=== PATIENT | female | born 1955 | race Caucasian/White ===

== ENCOUNTER → 2016-08-04 | Outpatient (CLI) | payer MEDICARE, BC ==
--- NOTE | 2016-08-04 13:18 | XR ---
EXAMINATION TYPE: XR chest 2V DATE OF EXAM: 08/04/2016 12:22 PM COMPARISON: None TECHNIQUE: PA and lateral views submitted. HISTORY: Difficulty breathing FINDINGS: The lungs are clear and there is no pneumothorax, pleural effusion, or focal pneumonia. IMPRESSION: 1. No acute process.
== END | disposition home or self-care (01) ==
LOC: RADXRMAIN 12:07
PROVIDERS: ATTEND Family Medicine
DX: R06.00 Dyspnea, unspecified (principal)
CPT/HCPCS: 71020

== ENCOUNTER → 2016-08-24 | Outpatient (CLI) | payer MEDICARE, BC ==
--- NOTE | 2016-08-25 06:53 | CT ---
EXAMINATION TYPE: CT mastoid wo con DATE OF EXAM: 08/24/2016 COMPARISON: NONE HISTORY: Chronic infections involving left mastoid. CT DLP: 150 mGycm CONTRAST: High-resolution noncontrast CT of the temporal bones was performed without contrast. Images are revie wed in the axial and coronal plane. External auditory canals are symmetric. Tympanic membranes are not thickened. Ossicular chains are symmetric and free of a destructive process or erosive change. No evidence for soft tissue mass with in the epitympanum or attic. No evidence for cholesteatoma or cholesterol granuloma. Mastoid air cells demonstrate a tiny amount of fluid within the left-sided mastoid air cells. Mastoid air cells are otherwise well aerated. No bony destructive process seen. No obvious soft tissue mass at the cerebellopontine cistern angles. Internal auditory canals are sym metric. There is a moderate pansinusitis. IMPRESSION: 1. Minimal fluid within the left-sided mastoid air cells. 2. Pansinusitis.
== END | disposition home or self-care (01) ==
LOC: RADCTMAIN 19:26
PROVIDERS: ATTEND Family Medicine
DX: H70.90 Unspecified mastoiditis, unspecified ear (principal)
CPT/HCPCS: 70486

== ENCOUNTER → 2016-11-04 | Outpatient (CLI) | payer MEDICARE, BC | END | disposition home or self-care (01) | LOC: NEUROMAIN 07:11 | PROVIDERS: ATTEND Otolaryngology | DX: Z53.9 Procedure and treatment not carried out, unspecified reason (principal) ==

== ENCOUNTER → 2017-04-05 | Outpatient (CLI) | payer MEDICARE ==
--- NOTE | 2017-04-05 10:20 | MM ---
Reason for exam: additional evaluation requested from prior study. Last mammogram was performed 1 year ago. History: Patient is postmenopausal. Benign excisional biopsy of the right breast, 1999. Physical Findings: Nurse did not find any significant physical abnormalities on exam. MG 3D Diag Mammo W/Cad [facility] Bilateral CC and MLO view(s) were taken. Prior study comparison: March 23, 2016, bilateral MG 3d screening mammo w/cad. January 19, 2015, bilateral MG screening mammo w CAD. There are scattered fibroglandular densities. Finding: There are typically benign round, regional calcifications in the right breast. There is a chronic nodularity in the left breast. There is no discrete abnormality. These results were verbally communicated with the patient and result sheet given to the patient on 04/05/17. ASSESSMENT: Benign, BI-RAD 2 RECOMMENDATION: Routine screening mammogram of both breasts in 1 year.
== END | disposition home or self-care (01) ==
LOC: RADMAMWWP 08:51
PROVIDERS: ATTEND Family Medicine
DX: R92.8 Other abnormal and inconclusive findings on diagnostic imaging of breast (principal)
CPT/HCPCS: 77066; G0279

== ENCOUNTER → 2017-06-06 | Outpatient (CLI) | payer MEDICARE ==
--- NOTE | 2017-06-06 10:26 | XR ---
EXAMINATION TYPE: XR chest 2V DATE OF EXAM: 06/06/2017 COMPARISON: 08/04/2016 TECHNIQUE: PA and lateral views submitted. HISTORY: Cough FINDINGS: The lungs are clear and there is no pneumothorax, pleural effusion, or focal pneumonia. Biapical pl eural thickening. Hypertrophic and degenerative change of the spine. IMPRESSION: 1. No acute process.
== END | disposition home or self-care (01) ==
LOC: RADXRMAIN 09:43
PROVIDERS: ATTEND Family Medicine
DX: J98.01 Acute bronchospasm (principal)
CPT/HCPCS: 71046

== ENCOUNTER → 2018-05-22 | Outpatient (CLI) | payer MEDICARE ==
--- NOTE | 2018-05-23 11:10 | MM ---
Reason for exam: screening (asymptomatic). Last mammogram was performed 1 year and 2 months ago. History: Patient is postmenopausal. Benign excisional biopsy of the right breast, 1999. Physical Findings: A clinical breast exam by your physician is recommended on an annual basis and results should be correlated with mammographic findings. MG 3D Screening Mammo W/Cad Bilateral CC and MLO view(s) were taken. Prior study comparison: April 05, 2017, bilateral MG 3d diag mammo w/cad [facility]. March 23, 2016, bilateral MG 3d screening mammo w/cad. The breast tissue is almost entirely fat. Asymmetric breast tissue in right breast upper outer quadrant 7cm from nipple and at 6 o'clock 5cm from nipple. This finding is changed when compared with previous exams. ASSESSMENT: Incomplete: need additional imaging evaluation, BI-RAD 0 RECOMMENDATION: Ultrasound of the right breast. [facility] will attempt to contact patient to return for ultrasound.
== END | disposition home or self-care (01) ==
LOC: RADMAMWWP 11:51
PROVIDERS: ATTEND Family Medicine
DX: Z12.31 Encounter for screening mammogram for malignant neoplasm of breast (principal)
CPT/HCPCS: 77063; 77067

== ENCOUNTER → 2018-06-06 | Outpatient (CLI) | payer MEDICARE ==
--- NOTE | 2018-06-06 14:54 | USB ---
Reason for exam: additional evaluation requested from abnormal screening. History: Patient is postmenopausal. Benign excisional biopsy of the right breast, 1999. Physical Findings: Nurse Summary: prominent area of tissue right breast 12 o'clock, all soft, movable (nurse ts). US Breast Workup Limited RT Right limited breast ultrasound including focal area of concern, retroareolar and axilla demonstrates a 0.2 x 0.1 x 0.2cm lesion too small to characterize at 2 o'clock, a 0.7 x 0.8 x 0.2cm solid, hypoechoic lesion at 6 o'clock possible cyst cluster corresponds to the mammographic finding for which a biopsy is recommended and a 0.5 x 0.6 x 0.2cm cystic lesion at 10 o'clock likely corresponds to the mammographic finding, 6 month follow up mammogram recommended. These results were verbally communicated with the patient and result sheet given to the patient on 06/06/18. ASSESSMENT: Suspicious, BI-RAD 4 RECOMMENDATION: Surgical consultation and ultrasound core biopsy of the right breast. (6 o'clock) Called with mammographic findings and has scheduled an appointment for the patient for 06/11/18 at 1:[address] Richards. PRELIMINARY REPORT CALLED AND FAXED TO DR. RICHARDS ON 06/06/18.
== END | disposition home or self-care (01) ==
LOC: RADUSWWP 11:22
PROVIDERS: ATTEND Family Medicine
DX: R92.8 Other abnormal and inconclusive findings on diagnostic imaging of breast (principal)

== ENCOUNTER 2018-10-14 07:55 | Day surgery (SDC) | payer MEDICARE ==
[2018-10-10 14:50] VITALS: BMI 40.7
[~2018-10-14 07:55] MED LIST: LACTATED RINGERS 1,000 ML IV SCH; LIDOCAINE 1% 20 ML VIAL (10MG/ML) FOR IV START INTRADERMA PRN
[2018-10-14 08:26] VITALS: RESP 16; TEMP 97
[2018-10-14] MEDS ORDERED: PROPOFOL 10 MG/ML 20 ML VIAL IV ONE (09:01)
[2018-10-14] MEDS ORDERED: LIDOCAINE 1% INJ 10MG/ML (20 ML MDV) ONE (09:01)
--- NOTE | 2018-10-14 09:07 | P.GSHP ---
History of Present Illness H&P Date: 10/14/18 Chief Complaint: GI bleed This is a 6-year-old female who presents today for colonoscopy. Patient had issues with GI bleed. 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 hx polyps, hx diverticulis History of Any Multi-Drug Resistant Organisms: None Reported Past Surgical History: Back Surgery, Hysterectomy, Tonsillectomy, Tubal Ligation Additional Past Surgical History / Comment(s): LAMINECTOMY, ENDOMETRIAL BX, COLONOSCOPY, EGD. sx for hiatal hernia Past Anesthesia/Blood Transfusion Reactions: Previous Problems w/ Anesthesia, Motion Sickness Additional Past Anesthesia/Blood Transfusion Reaction / Comment(s): COLLAPSED LUNG DURING LAMINECTOMY SURGERY. Past Psychological History: No Psychological Hx Reported Smoking Status: Never smoker Past Alcohol Use History: None Reported Past Drug Use History: None Reported - Past Family History Mother Family Medical History: Cancer Additional Family Medical History / Comment(s): BRAIN Brother(s) Family Medical History: Cancer Additional Family Medical History / Comment(s): BRAIN Medications and Allergies Home Medications Medication Instructions Recorded Confirmed Type Cyclobenzaprine [Flexeril] 10 mg PO BID PRN 03/20/14 10/14/18 History Levothyroxine Sodium [Synthroid] 88 mcg PO QAM 03/20/14 10/14/18 History Acetaminophen [Tylenol] 325 mg PO Q4H 10/10/18 10/14/18 History Ibuprofen 800 mg PO Q6H PRN 10/10/18 10/14/18 History Montelukast [Singulair] 10 mg PO DAILY 10/10/18 10/14/18 History Triamterene/Hydrochlorothiazid 1 each PO DAILY 10/10/18 10/14/18 History [Triamterene-Hctz 37.5-25 mg Tb] Allergies Allergy/AdvReac Type Severity Reaction Status Date / Time amoxicillin Allergy Rash/Hives Verified 10/14/18 08:28 Iodinated Contrast- Oral and AdvReac Itching Verified 10/14/18 08:28 IV Dye [Iodinated Contrast Media - IV Dye] nutmeg AdvReac Severe TONGUE Uncoded 10/14/18 08:28 SWELLING AND THROAT TIGHTENING Surgical - Exam Vital Signs Temp Pulse Resp BP Pulse Ox 97 F L 75 16 121/70 94 L 10/14/18 08:25 10/14/18 08:25 10/14/18 08:25 10/14/18 08:25 10/14/18 08:25 - General well developed, well nourished, no distress - Eyes PERRL - ENT normal pinna - Neck no masses - Respiratory normal expansion - Cardiovascular Rhythm: regular - Abdomen Abdomen: soft, non tender Assessment and Plan Assessment: GI bleed. We'll perform colonoscopy.
--- NOTE | 2018-10-14 09:21 | P.OP ---
Date of Procedure: 10/14/18 Preoperative Diagnosis: GI bleed Postoperative Diagnosis: External hemorrhoids Diverticulosis Rectal polyp Sigmoid colon polyp Procedure(s) Performed: Colonoscopy Anesthesia: MAC Surgeon: Archie Perry Pathology: other (Rectal, sigmoid colon polyp) Condition: stable Disposition: PACU Description of Procedure: The patient's placed on the endoscopy table in the lateral position. She received IV sedation. Digital rectal exam was performed which revealed external hemorrhoids. Flexible colonoscope was then placed patient anus passed throughout the entire colon. The ileocecal valve was visualized. The cecum, ascending and transverse colon appeared normal. In the descending and sigmoid colon there is moderate diverticular changes. There is no evidence of diverticula is. In the sigmoid colon there is a small sessile polyp this was removed with a cold forcep. The scope was then brought back the rectum and another polyp was seen in this removed with cold forcep. Scope was withdrawn through the anus and external hemorrhoids were noted. There is no evidence of any rectal bleeding it was presumed that her bleeding was due to hemorrhoids.
[2018-10-14 09:39] VITALS: BP 122/82; PULSE 62
== END 2018-10-14 10:08 | disposition home or self-care (01) ==
LOC: ORWHC2ENDO 07:55
PROVIDERS: ATTEND Surgery
DX: D12.8 Benign neoplasm of rectum (principal); K63.5 Polyp of colon; K57.30 Diverticulosis of large intestine without perforation or abscess without bleeding; K64.4 Residual hemorrhoidal skin tags; Z86.010 Personal history of colon polyps; K21.9 Gastro-esophageal reflux disease without esophagitis; K57.92 Diverticulitis of intestine, part unspecified, without perforation or abscess without bleeding; M19.90 Unspecified osteoarthritis, unspecified site; E07.9 Disorder of thyroid, unspecified; G62.9 Polyneuropathy, unspecified; R60.0 Localized edema; Z80.8 Family history of malignant neoplasm of other organs or systems; Z79.890 Hormone replacement therapy; Z79.899 Other long term (current) drug therapy; Z91.041 Radiographic dye allergy status; Z88.0 Allergy status to penicillin; Z91.018 Allergy to other foods
CPT/HCPCS: 88305; 45380; J2001; J2704

== ENCOUNTER → 2018-10-29 | Outpatient (CLI) | payer MEDICARE ==
--- NOTE | 2018-10-29 17:22 | CT ---
EXAMINATION TYPE: CT abdomen pelvis wo con DATE OF EXAM: 10/29/2018 COMPARISON: 09/02/2015 INDICATION: Left sided abdominal pain, history of renal stones on left side. DLP: 891.2 mGycm, Automated exposure control for dose reduction was used. CONTRAST: 0 mL of Isovue 300. Study performed without Oral Contrast TECHNIQUE: Axial images were obtained from above the diaphragm to the pubic rami in the axial plane a t 5 mm thick sections. Reconstructed images are reviewed on the computer in the coronal plane. FINDINGS: Limited CT sections are obtained the lung bases. The lung bases are clear. Small hiatal hernia is p resent. CT ABDOMEN: Liver: Normal Spleen: Normal Pancreas: Normal Adrenal glands: The adrenal glands are normal. Gallbladder: Multiple gallstones are present. Kidneys: No masses are evident. No hydronephrosis is present. No cysts are present. No renal stone s are evident. Aorta: Vascular calcification is within the aorta. Inferior vena cava: Normal. Some very subtle mesenteric inflammatory type signal within the left upper quadrant. Previous adenopa thy within this region has diminished in size. CT PELVIS: Loops of bowel within the abdomen and pelvis are normal. Study is performed without oral contrast limiting bowel evaluation. Diverticuli without acute diverticulitis is present. Appendix: Normal as visualized. Urinary bladder: Decompressed and cannot be evaluated. Genitourinary structures: Uterus is likely atrophic. Osseous structures: No suspicious lytic or sclerotic lesions. IMPRESSIONS: 1. No suspicious renal or ureteral stones. 2. Diverticulosis without acute diverticulitis. 3. Some resolving left upper quadrant mesenteric inflammatory type change. 4. Cholelithiasis
== END | disposition home or self-care (01) ==
LOC: RADCTMAIN 12:22
PROVIDERS: ATTEND Family Medicine
DX: K57.90 Diverticulosis of intestine, part unspecified, without perforation or abscess without bleeding (principal); K80.20 Calculus of gallbladder without cholecystitis without obstruction
CPT/HCPCS: 74176

== ENCOUNTER → 2020-08-30 | Outpatient (CLI) | payer MEDICARE ==
--- NOTE | 2020-08-31 08:24 | XR ---
EXAMINATION TYPE: XR knee complete RT DATE OF EXAM: 08/30/2020 COMPARISON: NONE HISTORY: Pain TECHNIQUE: Three views are submitted. FINDINGS: Hypertrophic arthropathy of the tricompartment spaces most marked involving patellofemoral joint and medial compartment of the knee. Osseous structures are intact. No acute fracture seen. IMPRESSION: 1. Severe osteoarthritis.
== END | disposition home or self-care (01) ==
LOC: RADXRMAIN 15:23
PROVIDERS: ATTEND Family Medicine
DX: M17.11 Unilateral primary osteoarthritis, right knee (principal)

== ENCOUNTER → 2021-01-07 | Outpatient (CLI) | payer MEDICARE ==
--- NOTE | 2021-01-10 09:41 | MM ---
Reason for exam: screening (asymptomatic). Last mammogram was performed 2 years and 8 months ago. History: Patient is postmenopausal. Benign excisional biopsy of the right breast, 1999. Physical Findings: A clinical breast exam by your physician is recommended on an annual basis and results should be correlated with mammographic findings. MG 3D Screening Mammo W/Cad Bilateral CC and MLO view(s) were taken. Prior study comparison: May 22, 2018, bilateral MG 3d screening mammo w/cad. There are scattered fibroglandular densities. ASSESSMENT: Negative, BI-RAD 1 RECOMMENDATION: Routine screening mammogram of both breasts in 1 year.
== END | disposition home or self-care (01) ==
LOC: RADMAMWWP 15:36
PROVIDERS: ATTEND Family Medicine
DX: Z12.31 Encounter for screening mammogram for malignant neoplasm of breast (principal); Z78.0 Asymptomatic menopausal state
CPT/HCPCS: 77063; 77067

== ENCOUNTER → 2021-01-24 | Outpatient (CLI) | payer MEDICARE ==
--- NOTE | 2021-01-24 16:03 | BD ---
EXAMINATION TYPE: Axial Bone Density DATE OF EXAM: 01/24/2021 COMPARISON: NONE CLINICAL HISTORY: Z78.0 post menopausal Height: 5 FT 2 3/4 IN Weight: 211 FRAX RISK QUESTIONS: Alcohol (3 or more units per day): NO Family History (Parent hip fracture): NO Glucocorticoids (More than 3mos): NO (Ex: prednisone, prednisolone, methylprednisolone, dexamethasone, and hydrocortisone). History of Fracture in Adulthood: YES Secondary Osteoporosis: 1. Type 1 Diabetes: NO 2. Hyperthyroidism: NO 3. Menopause before 45: AROUND AGE 45 4. Malnutrition: NO 5. Chronic liver disease: NO Rheumatoid Arthritis: NO Current Tobacco Use: NO RISK FACTORS HISTORY OF: Surgery to Spine/Hip(right/left)/Wrist (right/left): THORACIC SURG When: 2003 Family History of Osteoporosis: NO Active: YES Diet low in dairy products/other sources of calcium: NO Postmenopausal woman: AGE 45 Take estrogen and/or progesterone medications: NO Lost more than 2 inches in height since high school: YES MEDICATIONS: Thyroid Medications: YES Which medication: L VOTHYROXINE How Long: APPROX 10 YEARS Additional Medications: LEVOTHYROXINE, SINGULAIR, FLEXER ALL NEEDED, H2O PILL, BLOOD PRESSURE, Additional History: EXAM MEASUREMENTS: Bone mineral densitometry was performed using the [employer] System. Bone mineral density as measured about the Lumbar spine is: ----- L1-L4(G/cm2): 1.300 T Score Values are as follows: ----- L2: 0.3 ----- L3: 2.1 ----- L4: 1.5 ----- L1-L4: 1.0 BASELINE Bone mineral density about the R hip (g/cm2): 0.946 Bone mineral density about the L hip (g/cm2): 0.949 T Score values are as follows: -----R Neck: -0.7 -----L Neck: -0.6 -----R Total: -0.6 -----L Total: 0.1 BASELINE IMPRESSION: Normal (Values between +1 and -1 indicate normal bone mass). Consider repeating this study in 5 year s or sooner if there is some new clinical indication. NOTE: T-SCORE=SD OF THE YOUNG ADULT MEAN.
== END | disposition home or self-care (01) ==
LOC: RADBDWWP 07:20
PROVIDERS: ATTEND Family Medicine
DX: Z78.0 Asymptomatic menopausal state (principal)
CPT/HCPCS: 77080

== ENCOUNTER 2021-01-30 11:05 | Emergency (ER) | payer MEDICARE ==
[2021-01-30 11:16] VITALS: RESP 18
--- NOTE | 2021-01-30 12:37 | ED ---
General Adult HPI - General Chief complaint: Extremity Injury, Lower Stated complaint: right leg pain Time Seen by Provider: 01/30/21 12:18 Source: patient, RN notes reviewed Mode of arrival: ambulatory Limitations: no limitations - History of Present Illness Initial comments: 66-year-old female presents to the emergency room for a chief complaint of right leg pain. Patient reports that she was walking in the dark yesterday and tripped in a hole in the driveway and fell. Patient states she injured her knee foot and back. Patient states she is ambulating but wants to make sure her foot is not broken. Did not hit her head.Patient has no other complaints at this time including shortness of breath, chest pain, abdominal pain, nausea or vomiting, headache, or visual changes. - Related Data Home Medications Medication Instructions Recorded Confirmed Cyclobenzaprine [Flexeril] 10 mg PO BID PRN 03/20/14 10/14/18 Levothyroxine Sodium [Synthroid] 88 mcg PO QAM 03/20/14 10/14/18 Acetaminophen [Tylenol] 325 mg PO Q4H 10/10/18 10/14/18 Ibuprofen 800 mg PO Q6H PRN 10/10/18 10/14/18 Montelukast [Singulair] 10 mg PO DAILY 10/10/18 10/14/18 Triamterene/Hydrochlorothiazid 1 each PO DAILY 10/10/18 10/14/18 [Triamterene-Hctz 37.5-25 mg Tb] Allergies Allergy/AdvReac Type Severity Reaction Status Date / Time amoxicillin Allergy Rash/Hives Verified 01/30/21 11:16 Iodinated Contrast Media AdvReac Itching Verified 01/30/21 11:16 [Iodinated Contrast Media - IV Dye] nutmeg AdvReac Severe TONGUE Uncoded 01/30/21 11:16 SWELLING AND THROAT TIGHTENING Review of Systems ROS Statement: Those systems with pertinent positive or pertinent negative responses have been documented in the HPI. ROS Other: All systems not noted in ROS Statement are negative. 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 hx polyps, hx diverticulis History of Any Multi-Drug Resistant Organisms: None Reported Past Surgical History: Back Surgery, Hysterectomy, Tonsillectomy, Tubal Ligation Additional Past Surgical History / Comment(s): LAMINECTOMY, ENDOMETRIAL BX, COLONOSCOPY, EGD. sx for hiatal hernia Past Anesthesia/Blood Transfusion Reactions: Previous Problems w/ Anesthesia, Motion Sickness Additional Past Anesthesia/Blood Transfusion Reaction / Comment(s): COLLAPSED LUNG DURING LAMINECTOMY SURGERY. Past Psychological History: No Psychological Hx Reported Smoking Status: Never smoker Past Alcohol Use History: None Reported Past Drug Use History: None Reported - Past Family History Mother Family Medical History: Cancer Additional Family Medical History / Comment(s): BRAIN Brother(s) Family Medical History: Cancer Additional Family Medical History / Comment(s): BRAIN General Exam Limitations: no limitations General appearance: alert, in no apparent distress Head exam: Present: atraumatic Eye exam: Present: normal appearance, PERRL, EOMI. Absent: scleral icterus, conjunctival injection ENT exam: Present: normal exam, mucous membranes moist Neck exam: Present: normal inspection, full ROM. Absent: tenderness Respiratory exam: Present: normal lung sounds bilaterally. Absent: respiratory distress, wheezes Cardiovascular Exam: Present: regular rate, normal rhythm, normal heart sounds Extremities exam: Present: tenderness (Mild tenderness to the dorsal aspect of the right foot. No tenderness in the knee.), normal capillary refill (Capillary refill less than 2 seconds, DP pulse 2+ right lower extremity.), other (Sensation intact right lower extremity. No external signs of trauma.). Absent: full ROM (Patient has a 90 flexion, full extension of the right knee.), joint swelling Back exam: Present: vertebral tenderness (Minimal vertebral tenderness noted in the lumbar spine. No thoracic spine tenderness.) Course Vital Signs 01/30/21 11:13 Temperature 97.4 F L Pulse Rate 82 Respiratory 18 Rate Blood Pressure 136/78 O2 Sat by Pulse 98 Oximetry - Reevaluation(s) Reevaluation #1: 01/30/21 13:12 Patient refused pain medications throughout her visit. Medical Decision Making - Medical Decision Making vitals are stable. HPI and PE as documented. Patient able to ambulate. X-ray of the right foot, knee, tib-fib, and lumbar spine showed no acute fracture. HPI and physical exam as documented. At this time patient likely has a strain of the foot and knee. Recommend that she follow-up with primary care. If she has any worsening symptoms she will return to the emergency room. Disposition Clinical Impression: Knee pain, Foot pain, Fall Disposition: HOME SELF-CARE Condition: Good Instructions (If sedation given, give patient instructions): Knee Sprain (ED), Foot Sprain (ED) Additional Instructions: Please take Motrin and Tylenol for pain. Follow up with primary care in 1-2 days. Return to the emergency room for any worsening symptoms. Is patient prescribed a controlled substance at d/c from ED?: No Referrals: Nathan Aguilar MD [Primary Care Provider] - 1-2 days Álvaro Esposito DO [Doctor of Osteopathic Medicine] - 1-2 days Time of Disposition: 13:13
--- NOTE | 2021-01-30 13:01 | XR ---
EXAMINATION TYPE: XR foot complete RT DATE OF EXAM: 01/30/2021 COMPARISON: NONE HISTORY: Pain TECHNIQUE: Three views are submitted. FINDINGS: The osseous structures are intact. There is no acute fracture or dislocation. Hypertrophic spurs i nvolving the calcaneus. There is severe arthropathy of the first MTP. Hypertrophic spurring seen.. IMPRESSION: 1. No acute fracture or dislocation. If symptoms persist, follow-up exam in 7 to 10 days could be ob tained.
--- NOTE | 2021-01-30 13:02 | XR ---
EXAMINATION TYPE: XR knee complete RT DATE OF EXAM: 01/30/2021 COMPARISON: NONE HISTORY: Pain TECHNIQUE: Three views are submitted. FINDINGS: There is hypertrophic arthropathy of the knee joint and patellofemoral joint. No acute fracture or di slocation. No erosive changes.. Osseous structures are intact. No acute fracture seen. IMPRESSION: 1. No acute fracture or dislocation. 2. Osteoarthritis.
--- NOTE | 2021-01-30 13:03 | XR ---
EXAM TYPE: LUMBAR SPINE X RAY SERIES COMPARISON: NONE HISTORY: Pain TECHNIQUE: 4 views are submitted. FINDINGS: Alignment is anatomic. The pedicles are intact. The transverse processes are intact. There is mult ilevel degenerative disc disease with facet arthropathy most marked L4-5 and L5-S1 with grade 1 anter olisthesis L4 on L5. SI joint changes of sacroiliitis. IMPRESSION: 1. Degenerative disc disease and grade 1 anterolisthesis L4 on L5.
--- NOTE | 2021-01-30 13:04 | XR ---
EXAMINATION TYPE: XR tibia fibula RT DATE OF EXAM: 01/30/2021 COMPARISON: NONE HISTORY: Pain TECHNIQUE: Two views are submitted. FINDINGS: The osseous structures are intact. Arthropathy of the knee. Calcaneal spur noted.. IMPRESSION: 1. No acute osseous abnormality. 2. Osteoarthritis of the knee.
[2021-01-30 14:58] VITALS: BP 134/76; PULSE 81; TEMP 98
== END 2021-01-30 14:01 | disposition home or self-care (01) ==
LOC: EC 11:05
DX: M25.561 Pain in right knee (principal); M79.671 Pain in right foot; K21.9 Gastro-esophageal reflux disease without esophagitis; M19.90 Unspecified osteoarthritis, unspecified site; E07.9 Disorder of thyroid, unspecified; Z88.0 Allergy status to penicillin; Z90.710 Acquired absence of both cervix and uterus; Z90.89 Acquired absence of other organs; Z98.51 Tubal ligation status
CPT/HCPCS: 72100; 99283

== ENCOUNTER → 2022-07-04 | Outpatient (CLI) | payer MEDICARE ==
--- NOTE | 2022-07-05 08:27 | MM ---
Reason for Exam: Screening (asymptomatic). Last mammogram was performed 1 year(s) and 6 month(s) ago. Patient History: Menarche at age 11. First Full-Term at age 19. Hysterectomy at age 55. Postmenopausal. 1999, Benign Excisional Biopsy on the right side. Risk Values: Rosmery 5 year model risk: 1.6%. NCI Lifetime model risk: 5.4%. Prior Study Comparison: 04/05/2017 Bilateral Diagnostic Mammogram, [facility]. 05/22/2018 Bilateral Screening Mammogram, [facility]. 01/07/2021 Bilateral Screening Mammogram, [facility]. Tissue Density: The breast tissue is almost entirely fat. Findings: Analyzed By CAD. There is no suspicious group of microcalcifications or new suspicious mass in either breast. Overall Assessment: Negative, BI-RAD 1 Management: Screening Mammogram of both breasts in 1 year. A clinical breast exam by your physician is recommended on an annual basis and results should be correlated with mammographic findings. [facility] will attempt to contact patient to return for supplemental views and ultrasound if indicated. Electronically signed and approved by: Yuriy Luis DO
== END | disposition home or self-care (01) ==
LOC: RADMAMWWP 07:39
PROVIDERS: ATTEND Family Medicine
DX: Z12.31 Encounter for screening mammogram for malignant neoplasm of breast (principal); Z78.0 Asymptomatic menopausal state
CPT/HCPCS: 77063; 77067

== ENCOUNTER → 2022-07-21 | Outpatient (CLI) | payer MEDICARE ==
--- NOTE | 2022-07-21 13:35 | CT ---
EXAMINATION TYPE: CT soft tissue neck wo con DATE OF EXAM: 07/21/2022 HISTORY: anterior neck mass COMPARISON: None CT DLP: 658.5 mGycm. Automated Exposure Control for Dose Reduction was Utilized. TECHNIQUE: Multiple axial images are obtained from the skull base to the lung apices following uneven tful administration of nonionic IV contrast material. FINDINGS: There is no suspicious mass or fluid collection beneath the metallic marker in the anterior right inf erior neck. The thyroid gland is homogeneous and not enlarged. The larynx including the thyroid, arytenoid and cricoid cartilages as well as the vocal cords are nor mal and symmetric. Tongue base, epiglottis, aryepiglottic folds, vallecula and piriform sinuses are normal and symmetric . The parapharyngeal soft tissues are normal. The submandibular glands and parotid glands are normal and symmetric without focal mass or enlargemen t. The great vessels the neck are normal. There is no neck adenopathy. There is no soft tissue neck mass or abscess. Visualized skull base is normal. No osseous abnormaliti es are seen. The paranasal sinuses and mastoid air cells are well aerated. IMPRESSION: No significant abnormality seen.
== END | disposition home or self-care (01) ==
LOC: RADCTMAIN 12:11
PROVIDERS: ATTEND Family Medicine
DX: R22.1 Localized swelling, mass and lump, neck (principal)
CPT/HCPCS: 70490

== ENCOUNTER 2022-11-21 19:54 | Emergency (ER) | payer MEDICARE ==
[2022-11-21 20:00] VITALS: BP 156/89; RESP 20; TEMP 98.3
--- NOTE | 2022-11-21 20:07 | ED ---
Allergic Reaction HPI - General Source: patient, RN notes reviewed Mode of arrival: ambulatory Limitations: no limitations - History of Present Illness Complaint: allergic reaction <Batool Ignacio - Last Filed: 11/21/22 20:00> - General Source: patient, RN notes reviewed, old records reviewed <Fritz Funes - Last Filed: 11/21/22 22:33> - General Chief complaint: Allergic Reaction Stated complaint: Allergic Reaction Time Seen by Provider: 11/21/22 20:00 - History of Present Illness Initial Comments: This is a 67 year old female who presents to the emergency department for concerns of an allergic reaction. She was gardening yesterday, when something bit her on the left arm. Today she feels like her tongue is fat and her throat is swollen. (Batool Ignacio) Patient is a 67-year-old female with past medical history remarkable for hypothyroidism on Synthroid, chronic lower extremity edema who presents emergency Department complaining of possible ALLERGIC reaction to a spider bite. States that family members made her come in. She states she thinks she was bit by a spider yesterday on her left arm. Since that time she feels like she is little bit itchy around her neck and her tongue feels a little bit swollen. Has had no issues swallowing or eating. Is tolerating secretions. No shortness of breath. States she feels a little "out of it." But otherwise has been functioning normally. No known ALLERGIES to anything. This concerned regarding the bug bite for possible brown recluse spider specifically. She has a abrasion at the bite site but no other skin changes present. No discharge. She presents for further evaluation at this time. I evaluated her after she was placed in a room. She is concerned she may have an ALLERGIC reaction to the bite. Patient was started as a quick note. (Fritz Funes) - Related Data Home Medications Medication Instructions Recorded Confirmed Cyclobenzaprine [Flexeril] 10 mg PO BID PRN 03/20/14 10/14/18 Levothyroxine Sodium [Synthroid] 88 mcg PO QAM 03/20/14 10/14/18 Acetaminophen [Tylenol] 325 mg PO Q4H 10/10/18 10/14/18 Ibuprofen 800 mg PO Q6H PRN 10/10/18 10/14/18 Montelukast [Singulair] 10 mg PO DAILY 10/10/18 10/14/18 Triamterene/Hydrochlorothiazid 1 each PO DAILY 10/10/18 10/14/18 [Triamterene-Hctz 37.5-25 mg Tb] Allergies Allergy/AdvReac Type Severity Reaction Status Date / Time amoxicillin Allergy Rash/Hives Verified 11/21/22 19:59 Iodinated Contrast Media AdvReac Itching Verified 11/21/22 19:59 [Iodinated Contrast Media - IV Dye] nutmeg AdvReac Severe TONGUE Uncoded 01/30/21 11:16 SWELLING AND THROAT TIGHTENING Review of Systems ROS Other: All systems not noted in ROS Statement are negative. <Batool Ignacio - Last Filed: 11/21/22 20:00> ROS Other: All systems not noted in ROS Statement are negative. <Fritz Funes - Last Filed: 11/21/22 22:33> ROS Statement: Those systems with pertinent positive or pertinent negative responses have been documented in the HPI. Review of Systems: CONST: Denies fever EYES: Denies blurry vision ENT: Denies nasal congestion C/V: Denies Chest pain RESP: Denies shortness of breath GI: Denies abdominal pain : Denies dysuria SKIN: Endorses bug bite to left forearm MSK: Denies joint pain. 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 hx polyps, hx diverticulis History of Any Multi-Drug Resistant Organisms: None Reported Past Surgical History: Back Surgery, Hysterectomy, Tonsillectomy, Tubal Ligation Additional Past Surgical History / Comment(s): LAMINECTOMY, ENDOMETRIAL BX, COLONOSCOPY, EGD. sx for hiatal hernia Past Anesthesia/Blood Transfusion Reactions: Previous Problems w/ Anesthesia, Motion Sickness Additional Past Anesthesia/Blood Transfusion Reaction / Comment(s): COLLAPSED LUNG DURING LAMINECTOMY SURGERY. Past Psychological History: No Psychological Hx Reported Smoking Status: Never smoker Past Alcohol Use History: None Reported Past Drug Use History: None Reported - Past Family History Mother Family Medical History: Cancer Additional Family Medical History / Comment(s): BRAIN Brother(s) Family Medical History: Cancer Additional Family Medical History / Comment(s): BRAIN <Batool Ignacio - Last Filed: 11/21/22 20:00> General Exam Limitations: no limitations <Batool Ignacio - Last Filed: 11/21/22 20:00> <Fritz Funes - Last Filed: 11/21/22 22:33> - General Exam Comments Initial Comments: Visual Physical Exam Vital signs reviewed General: Well-appearing, nontoxic, no acute distress. Head: Normocephalic, atraumatic Eyes: PERRLA, EOMI ENT: Airway patent Chest: Nonlabored breathing Skin: No visual rash, normal skin tone Neuro: Alert and oriented 3 Musculoskeletal: No gross abnormalities I performed the QuickNote portion of this chart. Signed Batool Ignacio PA-C. (Batool Ignacio) General: Appears in no acute distress. HEAD: Normal with no signs of head trauma. EYES: PERRLA, EOMI, conjunctiva normal, no discharge. Pupils are 3 mm and eq ual bilaterally. ENT: Hearing grossly intact, normal oropharynx. Uvula is midline. No swelling in the posterior oropharynx. No evidence of fluid mild swelling. Tongue is normal in size with no swelling. No stridor auscultated. RESPIRATORY: Clear breath sounds bilaterally. No wheezes, rales, or rhonchi. C/V: Regular rate and rhythm. S1 and S2 auscultated, chronic bilateral lower extremity edema., peripheral pulses 2+ and intact throughout ABD: Abd is soft, nontender, nondistended EXT: Normal range of motion, no obvious deformity SKIN: Patient has an uncomplicated bug bite to the anterior left forearm. No surrounding edema or erythema. No fluctuance. No induration. No discharge. Approximately the size of a dime to nickel.No evidence of necrotic wound. NEURO: Alert and oriented x 4. Cranial nerves II-XII intact. No focal sensory or strength deficits. Nitro 0. GCS of 15. (Fritz Funes) Course Vital Signs 11/21/22 11/21/22 19:57 21:20 Temperature 98.3 F Pulse Rate 80 67 Respiratory 20 Rate Blood Pressure 156/89 O2 Sat by Pulse 97 99 Oximetry Medical Decision Making - Lab Data Result diagrams: 11/21/22 21:32 11/21/22 21:32 - EKG Data -: EKG Interpreted by Me <Fritz Funes - Last Filed: 11/21/22 22:33> - Medical Decision Making Was pt. sent in by a medical professional or institution (PRIMO Flores, REELING MACHINE SETUP OPERATOR, urgent care, hospital, or intermediate...) When possible be specific @ -No Did you speak to anyone other than the patient for history (EMS, parent, family, police, friend...)? What history was obtained from this source @ -No Did you review nursing and triage notes (agree or disagree)? Why? @ -I reviewed and agree with nursing and triage notes Were old charts reviewed (outside hosp., previous admission, EMS record, old EKG, old radiological studies, urgent care reports/EKG's, intermediate records)? Report findings @ -No old charts were reviewed Differential Diagnosis (chest pain, altered mental status, abdominal pain women, abdominal pain men, vaginal bleeding, weakness, fever, dyspnea, syncope, headache, dizziness, GI bleed, back pain, seizure, CVA, palpatations, mental health, musculoskeletal)? @ -ALLERGIC reaction, bug bite, dehydration, electrolyte abnormality. This list is not all inclusive. EKG interpreted by me (3pts min.). @ -As above X-rays interpreted by me (1pt min.). @ -None done CT interpreted by me (1pt min.). @ -None done U/S interpreted by me (1pt. min.). @ -None done What testing was considered but not performed or refused? (CT, X-rays, U/S, labs)? Why? @ -None What meds were considered but not given or refused? Why? @ -None Did you discuss the management of the patient with other professionals (professionals i.e. , PRIMO, REELING MACHINE SETUP OPERATOR, lab, RT, psych nurse, director of social services, want ad supervisor, teacher, staff weapons officer, telehealth case manager)? Give summary @ -No Was smoking cessation discussed for >3mins.? @ -No Was critical care preformed (if so, how long)? @ -No Were there social determinants of health that impacted care today? How? (H omelessness, low income, unemployed, alcoholism, drug addiction, transportation, low edu. Level, literacy, decrease access to med. care, half-way, rehab)? @ -No Was there de-escalation of care discussed even if they declined (Discuss DNR or withdrawal of care, Hospice)? DNR status @ -No What co-morbidities impacted this encounter? (DM, HTN, Smoking, COPD, CAD, Cancer, CVA, ARF, Chemo, Hep., AIDS, mental health diagnosis, sleep apnea, morbid obesity)? @ -None Was patient admitted / discharged? Hospital course, mention meds given and route, prescriptions, significant lab abnormalities, going to OR and other pertinent info. @ -Based on the patient's presentation and physical exam, I'm concerned for was likely a bug bite but cannot rule out other etiology at this time. We will obtain basic labs, screening EKG, and treated the patient with a ALLERGY cocktail. She also receive IV fluids. This is in addition to IV Benadryl, famotidine, slightly Medrol. Bite occurred yesterday. Vital signs otherwise within acceptable limits. She was in agreement this plan.Patient will also receive a tetanus booster. Patient started as a quick note. EKG showed no signs of ischemia.Patient's labs are within acceptable limits. On reevaluation, patient is feeling improved. We discussed her normal workup. She'll be discharged home at this time. She was in agreement this plan. Strict return precautions discussed. I instructed the patient to follow up with their PCP in the next 1-3 days. I explained that the patient should return to the emergency department if they experience any worsening symptoms. Strict return precautions were discussed with the patient. The patient expressed understanding of these instructions. I answered all questions that the patient had. The patient was discharged home in good condition with their prescriptions and follow up information. Undiagnosed new problem with uncertain prognosis? @ -No Drug Therapy requiring intensive monitoring for toxicity (Heparin, Nitro, Insulin, Cardizem)? @ -No Were any procedures done? @ -No Diagnosis/symptom? @ -Bug bite, ALLERGIC reaction Acute, or Chronic, or Acute on Chronic? @ -Acute Uncomplicated (without systemic symptoms) or Complicated (systemic symptoms)? @ -Complicated Side effects of treatment? @ -No Exacerbation, Progression, or Severe Exacerbation? @ -No Poses a threat to life or bodily function? How? (Chest pain, [place], [place], pneumonia, PE, COPD, DKA, ARF, appy, cholecystitis, CVA, Diverticulitis, Homicidal, Suicidal, threat to staff... and all critical care pts) @ -No (Fritz Funes) - Lab Data Lab Results 11/21/22 11/21/22 Range/Units 21:32 21:32 WBC 7.4 (3.8-10.6) k/uL RBC 4.64 (3.80-5.40) m/uL Hgb 14.2 (11.4-16.0) gm/dL Hct 43.2 (34.0-46.0) % MCV 93.1 (80.0-100.0) fL MCH 30.7 (25.0-35.0) pg MCHC 33.0 (31.0-37.0) g/dL RDW 13.1 (11.5-15.5) % Plt Count 281 (150-450) k/uL MPV 7.3 Neutrophils % 51 % Lymphocytes % 37 % Monocytes % 6 % Eosinophils % 3 % Basophils % 1 % Neutrophils # 3.8 (1.3-7.7) k/uL Lymphocytes # 2.7 (1.0-4.8) k/uL Monocytes # 0.5 (0-1.0) k/uL Eosinophils # 0.2 (0-0.7) k/uL Basophils # 0.0 (0-0.2) k/uL Sodium 137 (137-145) mmol/L Potassium 4.0 (3.5-5.1) mmol/L Chloride 105 (98-107) mmol/L Carbon Dioxide 25 (22-30) mmol/L Anion Gap 7 mmol/L BUN 17 (7-17) mg/dL Creatinine 0.70 (0.52-1.04) mg/dL Est GFR (CKD-EPI)AfAm >90 (>60 ml/min/1.73 sqM) Est GFR (CKD-EPI)NonAf 90 (>60 ml/min/1.73 sqM) Glucose 89 (74-99) mg/dL Calcium 9.5 (8.4-10.2) mg/dL - EKG Data EKG Comments: 12-lead Electrocardiogram Interpretation Note EKG was reviewed and interpreted by myself. 12-lead ECG performed at 2133 is interpreted by me as revealing sinus bradycardia at a rate of default value beats per minute. [place] is normal. There were no ST or T wave abnormalities to suggest myocardial ischemia or injury. R wave progression across the precordium was satisfactory. By my interpretation this EKG is non-diagnostic for acute ischemia. (Fritz Funes) Disposition <Batool Ignacio - Last Filed: 11/21/22 20:00> Is patient prescribed a controlled substance at d/c from ED?: No Time of Disposition: 22:07 <Fritz Funes - Last Filed: 11/21/22 22:33> Clinical Impression: Allergic reaction, Bug bite Disposition: HOME SELF-CARE Condition: Good Instructions (If sedation given, give patient instructions): Insect Bite or Sting (ED) Referrals: Nathan Aguilar MD [Primary Care Provider] - 1-2 days
[2022-11-21 21:21] VITALS: PULSE 67
[2022-11-21] MEDS ORDERED: diphenhydrAMINE 50 MG/ML 1 ML VIAL IVP STA (21:31)
[2022-11-21] MEDS ORDERED: FAMOTIDINE 20 MG/2 ML VIAL IV STA (21:31)
[2022-11-21] MEDS ORDERED: SODIUM CHLORIDE 0.9% 1,000 ML IV STA (21:31)
[2022-11-21] MEDS ORDERED: methylPREDNISolone SOD SUCCI 125 MG/2 ML VIAL IV STA (21:31)
[2022-11-21 21:48] LABS: Basophils % (A) 1 %; Eosinophils # (A) 0.2 k/uL (0-0.7); Eosinophils % (A) 3 %; HCT 43.2 % (34.0-46.0); HGB 14.2 gm/dL (11.4-16.0); Lymphocytes # (A) 2.7 k/uL (1.0-4.8); Lymphocytes % (A) 37 %; MCH 30.7 pg (25.0-35.0); MCV 93.1 fL (80.0-100.0); Mean Platelet Volume 7.3; Monocytes # (A) 0.5 k/uL (0-1.0); Monocytes % (A) 6 %; Neutrophils # (A) 3.8 k/uL (1.3-7.7); Neutrophils % (A) 51 %; Platelet Count 281 k/uL (150-450); RBC 4.64 m/uL (3.80-5.40); RDW 13.1 % (11.5-15.5); WBC 7.4 k/uL (3.8-10.6)
[2022-11-21] MEDS ORDERED: DIPH,PERTUS(ACELL)TETVAC-LF 0.5 ML VIAL IM ONE (21:54)
[2022-11-21 21:56] LABS: African American GFR (CKD) >90 (>60 ml/min/1.73 sqM); Anion Gap 7 mmol/L; Blood Urea Nitrogen 17 mg/dL (7-17); Calcium 9.5 mg/dL (8.4-10.2); Carbon Dioxide 25 mmol/L (22-30); Chloride 105 mmol/L (98-107); Glucose 89 mg/dL (74-99); Non-African American GFR(CKD) 90 (>60 ml/min/1.73 sqM); Sodium 137 mmol/L (137-145)
== END 2022-11-21 22:30 | disposition home or self-care (01) ==
LOC: EC 19:54
DX: S40.862A Insect bite (nonvenomous) of left upper arm, initial encounter (principal); T78.40XA Allergy, unspecified, initial encounter; E03.9 Hypothyroidism, unspecified; Z79.890 Hormone replacement therapy; Z88.0 Allergy status to penicillin; Z91.041 Radiographic dye allergy status; Z91.018 Allergy to other foods; Z23 Encounter for immunization; W57.XXXA Bitten or stung by nonvenomous insect and other nonvenomous arthropods, initial encounter
CPT/HCPCS: 36415; 93005; 80048; 85025; 90715; 99283; 96374; 96375 ×2; 96361; 90471; J1200; J2930; J3490

== ENCOUNTER 2023-01-17 09:30 | Emergency (ER) | payer MEDICARE ==
[2023-01-17 09:43] VITALS: TEMP 98
[2023-01-17] MEDS ORDERED: SODIUM CHLORIDE 0.9% 1,000 ML IV STA (10:37)
[2023-01-17] MEDS ORDERED: KETOROLAC 15 MG/ML 1 ML VIAL IVP STA (10:37)
[2023-01-17] MEDS ORDERED: ONDANSETRON 4 MG/2 ML VIAL IVP STA (10:37)
[2023-01-17 11:26] LABS: Basophils % (A) 0 %; Eosinophils # (A) 0.1 k/uL (0-0.7); Eosinophils % (A) 1 %; HCT 45.8 % (34.0-46.0); HGB 15.1 gm/dL (11.4-16.0); Lymphocytes # (A) 1.8 k/uL (1.0-4.8); Lymphocytes % (A) 16 %; MCH 30.8 pg (25.0-35.0); MCV 93.4 fL (80.0-100.0); Mean Platelet Volume 7.8; Monocytes # (A) 0.7 k/uL (0-1.0); Monocytes % (A) 6 %; Neutrophils # (A) 8.2 k/uL (1.3-7.7); Neutrophils % (A) 75 %; Platelet Count 299 k/uL (150-450); RBC 4.91 m/uL (3.80-5.40); RDW 12.3 % (11.5-15.5); WBC 10.9 k/uL (3.8-10.6)
--- NOTE | 2023-01-17 11:31 | US ---
EXAMINATION TYPE: US kidneys/renal and bladder DATE OF EXAM: 01/17/2023 COMPARISON: NONE CLINICAL INDICATION: Female, 68 years old with history of left flank pain. eval for stone/hydro; left flank pain EXAM MEASUREMENTS: Right Kidney: 12.2 x 5 .6 x 3.6 cm Left Kidney: 10.7 x 5.7 x 4.0 cm Incidental finding gallstones visualized. Right Kidney: Cortical thinning Left Kidney: Echogenic area lower pole measuring 1.1 cm. Bladder: anechoic Bilateral Jets seen: yes There is no evidence for hydronephrosis at this point in time. No masses are identified. The urin lucas bladder is anechoic. Bilateral ureteral jets are seen. IMPRESSION: 1. Nonobstructing nephrolithiasis left kidney. 2. Renal parenchymal thinning
[2023-01-17 11:34] LABS: INR 0.9 (<1.2); Partial Thromboplastin Time 22.4 sec (22.0-30.0); Prothrombin Time 10.3 sec (10.0-12.5)
[2023-01-17 11:40] LABS: ALT 28 U/L (4-34); AST 43 U/L (14-36); African American GFR (CKD) >90 (>60 ml/min/1.73 sqM); Albumin 4.1 g/dL (3.5-5.0); Alkaline Phosphatase 80 U/L (38-126); Amylase 62 U/L (30-110); Anion Gap 11 mmol/L; Blood Urea Nitrogen 17 mg/dL (7-17); Calcium 9.5 mg/dL (8.4-10.2); Carbon Dioxide 19 mmol/L (22-30); Chloride 109 mmol/L (98-107); Glucose 96 mg/dL (74-99); Lipase 100 U/L (23-300); Non-African American GFR(CKD) >90 (>60 ml/min/1.73 sqM); Sodium 139 mmol/L (137-145); Total Bilirubin 1.6 mg/dL (0.2-1.3); Total Protein 6.7 g/dL (6.3-8.2)
[2023-01-17 11:41] LABS: Potassium 4.5 mmol/L (3.5-5.1)
[2023-01-17 11:46] LABS: Appearance,Urine Clear (Clear); Color,Urine Yellow; Mucus,Urine Rare /hpf; RBC,Urine 2 /hpf (0-5); Squamous Epithelial Cell,Urine 2 /hpf (0-4); WBC,Urine 11 /hpf (0-5)
[2023-01-17 11:47] LABS: Bilirubin,Urine Negative (Negative); Blood,Urine Trace (Negative); Glucose,Urine (UA) Negative (Negative); Ketones,Urine Negative (Negative); Leukocyte Esterase,Urine Moderate (Negative); Nitrite,Urine Negative (Negative); Protein,Urine Negative (Negative); Specific Gravity,Urine >1.030 (1.001-1.035); Urobilinogen,Urine <2.0 mg/dL (<2.0)
--- NOTE | 2023-01-17 12:58 | CT ---
EXAMINATION TYPE: CT abdomen pelvis wo con DATE OF EXAM: 01/17/2023 COMPARISON: 10/29/2018 HISTORY: LT flank pain CT DLP: 815 mGycm Examination of the solid and hollow viscera is limited given the lack of contrast. FINDINGS: LUNG BASES: No evidence for nodule. No evidence for infiltrate. Small fixed hiatal hernia. LIVER/GB: Multiple calcified gallstones noted. No space-occupying hepatic lesion. PANCREAS: No pancreatic mass identified. No inflammatory process seen. SPLEEN: No evidence for splenomegaly. No intrasplenic lesions seen. ADRENALS: No adrenal nodules identified. No evidence for thickening. KIDNEYS: No evidence for renal mass. Nonobstructing nephrolithiasis in left kidney. No hydronephrosis . BOWEL: Appendix has a normal appearance. No evidence of bowel obstruction. Mild wall thickening and p erisigmoid inflammatory change suggesting mild sigmoid diverticulitis. No evidence for perforation or abscess. Neoplasm not excluded. Lymph nodes: No evidence for adenopathy greater than 1 cm. Abdominal aorta: Atheromatous changes seen. No evidence for aneurysm. Genital organs: No significant abnormality. 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 IMPRESSION: 1.. Mild wall thickening and perisigmoid inflammatory change suggesting mild sigmoid diverticulitis. No evidence for perforation or abscess. Neoplasm not excluded.
[2023-01-17] MEDS ORDERED: metroNIDAZOLE 500 MG TAB PO STA (13:40)
[2023-01-17] MEDS ORDERED: CIPROFLOXACIN HCL 500 MG TAB PO STA (13:40)
[2023-01-17] MEDS ORDERED: ONDANSETRON 4 MG ODT STARTER PACK 2 TAB BTL PO STA (13:43)
--- NOTE | 2023-01-17 13:43 | ED ---
General Adult HPI - General Chief complaint: Abdominal Pain Stated complaint: kidney stone Time Seen by Provider: 01/17/23 09:52 Source: patient, RN notes reviewed, old records reviewed Mode of arrival: ambulatory Limitations: no limitations - History of Present Illness Initial comments: Patient is a 68-year-old female with past medical history remarkable for diverticulitis, kidney stones, presenting with left flank pain. States it originally started in the left lower back and radiates around to the left lower quadrant. Believe she may have had some hematuria as well. Symptoms have been present for multiple days. He has had a history of kidney stones and states symptoms usually resolve, however patient has been complaining of persistent symptoms which is why she presents for further evaluation. Endorses mild nausea but no emesis. No fevers. No diarrhea. No abdominal pain, nausea, vomiting. No dysuria the patient believes she does have darker urine that could be hematuria. Denies chest pain or shortness of breath. No other acute complaints at this time. Presents for further evaluation. - Related Data Home Medications Medication Instructions Recorded Confirmed Levothyroxine Sodium [Synthroid] 88 mcg PO QAM 03/20/14 10/14/18 Previous Rx's Medication Instructions Recorded Ciprofloxacin HCl [Cipro] 500 mg PO Q12HR 5 Days #10 tab 01/17/23 metroNIDAZOLE [Flagyl] 500 mg PO TID 5 Days #15 tab 01/17/23 Allergies Allergy/AdvReac Type Severity Reaction Status Date / Time amoxicillin Allergy Rash/Hives Verified 01/17/23 13:40 all over body Iodinated Contrast Media AdvReac Itching Verified 01/17/23 13:40 [Iodinated Contrast Media - IV Dye] nutmeg Allergy Severe TONGUE Uncoded 01/17/23 13:40 SWELLING AND THROAT TIGHTENING Review of Systems ROS Statement: Those systems with pertinent positive or pertinent negative responses have been documented in the HPI. Review of Systems: CONST: Denies fever EYES: Denies blurry vision ENT: Denies nasal congestion C/V: Denies Chest pain RESP: Denies shortness of breath GI: Endorses abdominal pain : Denies dysuria SKIN: Denies rash. MSK: Denies joint pain. NEURO: Denies headache ROS Other: All systems not noted in ROS Statement are negative. 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 hx polyps, hx diverticulis History of Any Multi-Drug Resistant Organisms: None Reported Past Surgical History: Back Surgery, Hysterectomy, Tonsillectomy, Tubal Ligation Additional Past Surgical History / Comment(s): LAMINECTOMY, ENDOMETRIAL BX, COLONOSCOPY, EGD. sx for hiatal hernia Past Anesthesia/Blood Transfusion Reactions: Previous Problems w/ Anesthesia, Motion Sickness Additional Past Anesthesia/Blood Transfusion Reaction / Comment(s): COLLAPSED LUNG DURING LAMINECTOMY SURGERY. Past Psychological History: No Psychological Hx Reported Smoking Status: Never smoker Past Alcohol Use History: Rare Past Drug Use History: None Reported - Past Family History Mother Family Medical History: Cancer Additional Family Medical History / Comment(s): BRAIN Brother(s) Family Medical History: Cancer Additional Family Medical History / Comment(s): BRAIN General Exam - General Exam Comments Initial Comments: General: Appears in no acute distress. HEAD: Normal with no signs of head trauma. EYES: PERRLA, EOMI, conjunctiva normal, no discharge. ENT: Hearing grossly intact, normal oropharynx. RESPIRATORY: Clear breath sounds bilaterally. No wheezes, rales, or rhonchi. C/V: Regular rate and rhythm. S1 and S2 auscultated, no edema, peripheral pulses 2+ and intact throughout ABD: Abd is soft, nontender, nondistended. No guarding. No rebound tenderness. No peritoneal signs. EXT: Normal range of motion, no obvious deformity SKIN: No rashes or lesions observed on exposed skin. NEURO: Alert and oriented 4. Limitations: no limitations Course Vital Signs 01/17/23 01/17/23 01/17/23 09:36 09:40 10:40 Temperature 98 F Pulse Rate 85 67 60 Respiratory 18 17 17 Rate Blood Pressure 165/83 133/73 128/73 O2 Sat by Pulse 98 98 97 Oximetry 01/17/23 01/17/23 01/17/23 11:00 12:00 13:00 Temperature Pulse Rate 59 L 61 58 L Respiratory 18 18 17 Rate Blood Pressure 128/73 120/72 123/80 O2 Sat by Pulse 99 97 95 Oximetry Medical Decision Making - Medical Decision Making Was pt. sent in by a medical professional or institution (PRIMO Flores, GEAR TOOTH GRINDING MACHINE OPERATOR, urgent care, hospital, or half-way...) When possible be specific @ -No Did you speak to anyone other than the patient for history (EMS, parent, family, police, friend...)? What history was obtained from this source @ -No Did you review nursing and triage notes (agree or disagree)? Why? @ -I reviewed and agree with nursing and triage notes Were old charts reviewed (outside hosp., previous admission, EMS record, old EKG, old radiological studies, urgent care reports/EKG's, half-way records)? Report findings @ -Old charts reviewed. Differential Diagnosis (chest pain, altered mental status, abdominal pain women, abdominal pain men, vaginal bleeding, weakness, fever, dyspnea, syncope, headache, dizziness, GI bleed, back pain, seizure, CVA, palpatations, mental health, musculoskeletal)? @ -Differential Abdominal Pain Women: Appendicitis, Cholecystitis, diverticulosis, ischemic bowel, pancreatitis, hepatitis, UTI, gastroenteritis, AAA, incarcerated hernia, bowel obstruction, constipation, inflammatory bowel, hepatitis, peptic ulcer disease, splenic infarction, perforated viscus, vulvitis, ovarian torsion, PID, kidney stone, placenta abruption, this is not meant to be an all-inclusive list EKG interpreted by me (3pts min.). @ -None done X-rays interpreted by me (1pt min.). @ -None done CT interpreted by me (1pt min.). @ -CT shows diverticulitis. Patient also has nephrolithiasis on the left. U/S interpreted by me (1pt. min.). @ -Ultrasound shows no obstructing uropathy. Nephrolithiasis on the left. What testing was considered but not performed or refused? (CT, X-rays, U/S, labs)? Why? @ -None What meds were considered but not given or refused? Why? @ -None Did you discuss the management of the patient with other professionals (professionals i.e. PRIMO Flores, GEAR TOOTH GRINDING MACHINE OPERATOR, lab, RT, psych nurse, family welfare social work professor, assistant attorney general, teacher, chief business development officer, caser shoe parts)? Give summary @ -No Was smoking cessation discussed for >3mins.? @ -No Was critical care preformed (if so, how long)? @ -No Were there social determinants of health that impacted care today? How? (Homelessness, low income, unemployed, alcoholism, drug addiction, transportation, low edu. Level, literacy, decrease access to med. care, alf, rehab)? @ -No Was there de-escalation of care discussed even if they declined (Discuss DNR or withdrawal of care, Hospice)? DNR status @ -No What co-morbidities impacted this encounter? (DM, HTN, Smoking, COPD, CAD, Cancer, CVA, ARF, Chemo, Hep., AIDS, mental health diagnosis, sleep apnea, morbid obesity)? @ -None Was patient admitted / discharged? Hospital course, mention meds given and route, prescriptions, significant lab abnormalities, going to OR and other pertinent info. @ -Based on the patient's presentation physical exam, presents with abdominal pain. We will obtain abdominal laboratory studies as well as start with an ultrasound. She was in agreement this plan. Vital signs within acceptable limits. Patient will be given IV fluids, Zofran, Toradol. Patient's ultrasound shows nephrolithiasis without any obstructive uropathy present. Labs are unremarkable including no evidence of hematuria or suspicion for ureteral lithiasis at this time. Therefore we will obtain CT imaging. She was in agreement with this plan. CT positive for diverticulitis. Discussed res ults the patient. She'll be started on ciprofloxacin as well as Flagyl. She was in agreement with this plan. She will receive a dose prior to discharge. I will provide the patient with a prescription for ciprofloxacin, Flagyl. I instructed the patient to follow up with their PCP in the next 1-3 days . I explained that the patient should return to the emergency department if they experience any worsening symptoms. Strict return precautions were discussed with the patient. The patient expressed understanding of these instructions. I answered all questions that the patient had. The patient was discharged home in good condition with their prescriptions and follow up information. Undiagnosed new problem with uncertain prognosis? @ -No Drug Therapy requiring intensive monitoring for toxicity (Heparin, Nitro, Insulin, Cardizem)? @ -No Were any procedures done? @ -No Diagnosis/symptom? @ -Diverticulitis Acute, or Chronic, or Acute on Chronic? @ -Acute Uncomplicated (without systemic symptoms) or Complicated (systemic symptoms)? @ -Complicated Side effects of treatment? @ -No Exacerbation, Progression, or Severe Exacerbation? @ -No] Poses a threat to life or bodily function? How? (Chest pain, [place], [place], pneumonia, PE, COPD, DKA, ARF, appy, cholecystitis, CVA, Diverticulitis, Homicidal, Suicidal, threat to staff... and all critical care pts) @ -Unlikely - Lab Data Result diagrams: 01/17/23 10:57 01/17/23 10:57 Lab Results 01/17/23 01/17/23 01/17/23 Range/Units 10:57 10:57 10:57 WBC 10.9 H (3.8-10.6) k/uL RBC 4.91 (3.80-5.40) m/uL Hgb 15.1 (11.4-16.0) gm/dL Hct 45.8 (34.0-46.0) % MCV 93.4 (80.0-100.0) fL MCH 30.8 (25.0-35.0) pg MCHC 33.0 (31.0-37.0) g/dL RDW 12.3 (11.5-15.5) % Plt Count 299 (150-450) k/uL MPV 7.8 Neutrophils % 75 % Lymphocytes % 16 % Monocytes % 6 % Eosinophils % 1 % Basophils % 0 % Neutrophils # 8.2 H (1.3-7.7) k/uL Lymphocytes # 1.8 (1.0-4.8) k/uL Monocytes # 0.7 (0-1.0) k/uL Eosinophils # 0.1 (0-0.7) k/uL Basophils # 0.0 (0-0.2) k/uL PT 10.3 (10.0-12.5) sec INR 0.9 (<1.2) APTT 22.4 (22.0-30.0) sec Sodium (137-145) mmol/L Potassium (3.5-5.1) mmol/L Chloride (98-107) mmol/L Carbon Dioxide (22-30) mmol/L Anion Gap mmol/L BUN (7-17) mg/dL Creatinine (0.52-1.04) mg/dL Est GFR (CKD-EPI)AfAm (>60 ml/min/1.73 sqM) Est GFR (CKD-EPI)NonAf (>60 ml/min/1.73 sqM) Glucose (74-99) mg/dL Plasma Lactic Acid [place] (0.7-2.0) mmol/L Calcium (8.4-10.2) mg/dL Total Bilirubin (0.2-1.3) mg/dL AST (14-36) U/L ALT (4-34) U/L Alkaline Phosphatase (38-126) U/L Total Protein (6.3-8.2) g/dL Albumin (3.5-5.0) g/dL Amylase (30-110) U/L Lipase (23-300) U/L Urine Color Yellow Urine Appearance Clear (Clear) Urine pH 6.0 (5.0-8.0) Ur Specific [place] >1.030 (1.001-1.035) Urine Protein Negative (Negative) Urine Glucose (UA) Negative (Negative) Urine Ketones Negative (Negative) Urine Blood Trace (Negative) Urine Nitrite Negative (Negative) Urine Bilirubin Negative (Negative) Urine Urobilinogen <2.0 (<2.0) mg/dL Ur Leukocyte Esterase Moderate (Negative) Urine RBC 2 (0-5) /hpf Urine WBC 11 H (0-5) /hpf Ur Squamous Epith Cells 2 (0-4) /hpf Urine Mucus Rare H (None) /hpf 01/17/23 01/17/23 Range/Units 10:57 10:57 WBC (3.8-10.6) k/uL RBC (3.80-5.40) m/uL Hgb (11.4-16.0) gm/dL Hct (34.0-46.0) % MCV (80.0-100.0) fL MCH (25.0-35.0) pg MCHC (31.0-37.0) g/dL RDW (11.5-15.5) % Plt Count (150-450) k/uL MPV Neutrophils % % Lymphocytes % % Monocytes % % Eosinophils % % Basophils % % Neutrophils # (1.3-7.7) k/uL Lymphocytes # (1.0-4.8) k/uL Monocytes # (0-1.0) k/uL Eosinophils # (0-0.7) k/uL Basophils # (0-0.2) k/uL PT (10.0-12.5) sec INR (<1.2) APTT (22.0-30.0) sec Sodium 139 (137-145) mmol/L Potassium 4.5 (3.5-5.1) mmol/L Chloride 109 H (98-107) mmol/L Carbon Dioxide 19 L (22-30) mmol/L Anion Gap 11 mmol/L BUN 17 (7-17) mg/dL Creatinine 0.61 (0.52-1.04) mg/dL Est GFR (CKD-EPI)AfAm >90 (>60 ml/min/1.73 sqM) Est GFR (CKD-EPI)NonAf >90 (>60 ml/min/1.73 sqM) Glucose 96 (74-99) mg/dL Plasma Lactic Acid [place] 0.7 (0.7-2.0) mmol/L Calcium 9.5 (8.4-10.2) mg/dL Total Bilirubin 1.6 H (0.2-1.3) mg/dL AST 43 H (14-36) U/L ALT 28 (4-34) U/L Alkaline Phosphatase 80 (38-126) U/L Total Protein 6.7 (6.3-8.2) g/dL Albumin 4.1 (3.5-5.0) g/dL Amylase 62 (30-110) U/L Lipase 100 (23-300) U/L Urine Color Urine Appearance (Clear) Urine pH (5.0-8.0) Ur Specific [place] (1.001-1.035) Urine Protein (Negative) Urine Glucose (UA) (Negative) Urine Ketones (Negative) Urine Blood (Negative) Urine Nitrite (Negative) Urine Bilirubin (Negative) Urine Urobilinogen (<2.0) mg/dL Ur Leukocyte Esterase (Negative) Urine RBC (0-5) /hpf Urine WBC (0-5) /hpf Ur Squamous Epith Cells (0-4) /hpf Urine Mucus (None) /hpf Disposition Clinical Impression: Diverticulitis Disposition: HOME SELF-CARE Condition: Good Instructions (If sedation given, give patient instructions): Diverticulitis (ED) Prescriptions: Ciprofloxacin HCl [Cipro] 500 mg PO Q12HR 5 Days #10 tab metroNIDAZOLE [Flagyl] 500 mg PO TID 5 Days #15 tab Is patient prescribed a controlled substance at d/c from ED?: No Referrals: Nathan Aguilar MD [Primary Care Provider] - 1-2 days Time of Disposition: 13:20
[2023-01-17 14:11] VITALS: BP 125/77; PULSE 67; RESP 18
== END 2023-01-17 14:02 | disposition home or self-care (01) ==
LOC: EC 09:30
DX: K57.32 Diverticulitis of large intestine without perforation or abscess without bleeding (principal); N20.0 Calculus of kidney; B96.20 Unspecified Escherichia coli [E. coli] as the cause of diseases classified elsewhere; E07.9 Disorder of thyroid, unspecified; Z79.890 Hormone replacement therapy; Z88.0 Allergy status to penicillin; Z91.041 Radiographic dye allergy status; Z91.018 Allergy to other foods
CPT/HCPCS: 99285; 96374; 96375; 96361; 36415; 80053; 82150; 83605; 83690; 85025; 85610; 85730; 81001; 87086; 87077; 87186; 76770; 74176; J2405; J1885; S0119